=== PATIENT | female | born 1950 | race Caucasian/White ===

== ENCOUNTER → 2019-06-17 | Outpatient (CLI) | payer MEDICARE, OTHER | END | disposition home or self-care (01) | LOC: PLD 08:57 → LAB SHORT 08:57 | DX: D48.5 Neoplasm of uncertain behavior of skin (principal) | CPT/HCPCS: 88305 ==

== ENCOUNTER 2019-11-04 12:59 | Day surgery (SDC) | payer MEDICARE, OTHER ==
[~2019-11-04] VITALS: Ht 167.6 cm; Wt 60.2 kg
[~2019-11-04 12:59] MED LIST: BENADRYL25 MG PO; MOTION RELIEF25 MG PO; Pravachol40 MG PO; TOLT4 PO
== END 2019-11-04 14:45 | disposition home or self-care (01) ==
LOC: ORSCSDS 12:59
PROVIDERS: Internal Medicine Gastroenterology
PROC: 0DBP8ZX Excision of Rectum, Via Natural or Artificial Opening Endoscopic, Diagnostic (ICD-10-PCS; principal; 2019-11-04 14:15)
DX: Z12.11 Encounter for screening for malignant neoplasm of colon (principal); Z80.0 Family history of malignant neoplasm of digestive organs; K62.1 Rectal polyp; E78.5 Hyperlipidemia, unspecified; Z79.899 Other long term (current) drug therapy
CPT/HCPCS: 88305; J2704; J7120

== ENCOUNTER 2024-12-03 11:39 | Day surgery (SDC) | payer MEDICARE ==
[~2024-12-03] VITALS: Ht 170.2 cm; Wt 62.1 kg
[~2024-12-03 11:39] MED LIST changes: +BANOPHEN25 MG PO; +Crestor40 MG; +Lactated Ringer's 1,000 ML IV ONE; +ROSUVASTATIN CA20 MG PO; +propofoL 50 ML IV ONE
[2024-12-03] MEDS ORDERED: Lactated Ringer's 1,000 ML IV ONE (13:14)
[2024-12-03 14:38] VITALS: BP 105/79
== END 2024-12-03 14:53 | disposition home or self-care (01) ==
LOC: ORSCSDS 11:39
PROVIDERS: Internal Medicine Gastroenterology
PROC: 0DBM8ZX Excision of Descending Colon, Via Natural or Artificial Opening Endoscopic, Diagnostic (ICD-10-PCS; principal; 2024-12-03 13:00)
DX: Z12.11 Encounter for screening for malignant neoplasm of colon (principal); Z80.0 Family history of malignant neoplasm of digestive organs; Z86.0100 Personal history of colon polyps, unspecified; D12.4 Benign neoplasm of descending colon; Z79.899 Other long term (current) drug therapy
CPT/HCPCS: 88305; J2704; J7120